=== PATIENT | male | born 1960 | race Caucasian/White ===

== ENCOUNTER → 2020-05-12 | Outpatient (CLI) | payer OTHER | LOC: MRI 13:00 | DX: R20.0 Anesthesia of skin (principal); M51.36 Other intervertebral disc degeneration, lumbar region; M48.061 Spinal stenosis, lumbar region without neurogenic claudication; M51.37 Other intervertebral disc degeneration, lumbosacral region; M48.07 Spinal stenosis, lumbosacral region; M48.02 Spinal stenosis, cervical region; M50.31 Other cervical disc degeneration, high cervical region | CPT/HCPCS: 36415; 72141; 72158; 82565; A9577 ==

== ENCOUNTER → 2020-09-03 | Outpatient (CLI) | payer OTHER | LOC: EMI 14:44 | DX: R56.9 Unspecified convulsions (principal) | CPT/HCPCS: 70553; A9577 ==